=== PATIENT | male | born 1970 | race Caucasian/White ===

== ENCOUNTER 2020-07-14 10:53 | Inpatient (IN) | payer OTHER ==
[~2020-07-14] VITALS: Ht 170.2 cm; Wt 94.3 kg
[2020-07-14] VITALS (27 sets, daily range): BP systolic 122–158; BP diastolic 79–103
[~2020-07-14 10:53] MED LIST: LEXAPRO 10 MG T10 M2 PO; PRILOSEC 10MG C10 MG PO; PROZAC10 MG PO; TRAMADOL 50 MG50 MG PO
[2020-07-14 11:40] LABS: HEMATOCRIT 46.2 % (42.0-52.0); HEMOGLOBIN 15.5 gm/dL (14.0-18.0); MCH 30.1 pg (26.0-34.0); MCHC 33.5 g/dL (28.0-37.0); MCV 89.9 fL (80.0-100.0); MPV 8.7 fl. (7.2-11.1); NUCLEATED RBCS 0 /100WBC; PLATELET COUNT* 367 thou/uL (150-400); RBC 5.14 mil/uL (4.50-6.00); RDW-CV 13.3 % (10.5-14.5); WBC 17.7 thou/uL (4.0-11.0)
[2020-07-14 11:47] LABS: CREATININE 1.1 mg/dL (0.6-1.3); POTASSIUM 4.2 mmol/L (3.5-5.1)
[2020-07-14 12:01] LABS: ALBUMIN 3.7 g/dL (3.4-5.0); CK-MB MASS 65.5 ng/mL (<0.5-3.6); MAGNESIUM 1.8 mg/dL (1.8-2.4); TOTAL BILIRUBIN 0.3 mg/dL (<0.1-1.0); TOTAL PROTEIN 7.8 g/dL (6.4-8.2)
[2020-07-14 12:57] LABS: ABSOLUTE LYMPHOCYTES 0.9 thou/uL (0.8-5.3); ABSOLUTE NEUTROPHILS 16.8 thou/uL (1.6-8.1); PLATELET ESTIMATE ADEQUATE
[2020-07-14 13:57] LABS: INR 1.1; PROTIME 11.5 Seconds (9.20-11.50)
[2020-07-14 14:10] LABS: APTT > 139.0 Seconds (25.0-31.3)
--- NOTE | 2020-07-14 17:59 | CARD ---
[address] [address] CARDIAC CATH REPORT Name: LAKISHA CHRISTIANSEN Room: [address] ADM IN .Samir.#: [id number] Admission: 07/14/20 Attend Phys: Juhi Mistry Discharge: Date of : 68 Report #: [id number] THIS REPORT FOR: cc: Myke Angela MD, Anthony MD ~ Beto Henry MD [facility] APPROVED REPORT Study performed: 07/14/2020 11:06:32 Patient Details Patient Status: ED Room #: The patient is a 49 year-old male Event Personnel Beto Henry Hr Operations Advisor, Kimberly Cordova RN Electronic Development Technician, Filippo Lopez [employer] Monitor, Lona Martínez RTR Scrub, Kamran Gutierrez RTR Monitor Procedures Performed Left Heart Cath w/or w/o Coronaries [id number] [facility] Revasc AMI Total/Sub Single LAD C9606 AMIREVSING Hemostasis with Hemoband Indication Abnormal ECG, STEMI (>6 hrs to = 12 hrs), Chest pain Risk Factors Hypercholesterolemia, Hypertension, Diabetes Tobacco History () Admission/Lab Medications/Medications given during procedure Glycoprotein IllbIlla Inhibitors, Heparin Unfract., Nitroglycerin IA 200 mcg, Verapamil IA 2.5 mg, Heparin IV 7000 units, Aggrastat IV 9.2 mcg per min, Nitroglycerin IC 200 mcg, Midazolam (Versed) IV 2 mg, Verapamil IV 1.5 mg, Heparin IV 2000 units, Effient PO 60 mg Procedure Narrative The patient was brought emergently to the Cardiac Catheterization Laboratory and was prepped and draped in a sterile manner. The right wrist was infiltrated with 2% Lidocaine subcutaneous anesthesia. A Slender Glidesheath sheath was inserted into [place] [address] CARDIAC CATH REPORT Name: LAKISHA CHRISTIANSEN Room: [address] IN ..#: [id number] Admission: 07/14/20 Attend Phys: Juhi Mistry Discharge: Date of : 68 Report #: [id number] Coronary angiography was performed using coronary diagnostic catheters. The right coronary system was accessed and visualized with a Diagnostic JR4 6Fr catheter. The left coronary system was accessed and visualized with a Diagnostic JL4 6Fr catheter. The left ventricle was accessed and visualized with a Diagnostic Pigtail 6Fr catheter. Left ventricular/Aortic Valve gradient assessed via catheter pullback. Left ventriculogram was performed in CASTILLO projection. Closure device was deployed with a 6 Fr vascband. The patient tolerated the procedure well and there were no complications associated with the procedure. There was no hematoma. Intraoperative Conscious Sedation Sedation start time: 1112 Case end Time: 1201 Versed 2 mg Fluoro Time: 8.6 minutes Dose: DAP 813012 cGycm2 1878.45 mGy Contrast Type and Amount: Visipaque 140 ml Coronary Angiography The patient's coronary anatomy is right dominant. Diagnostic Cath Left Main 0% stenosis LAD completely occluded proximally with thrombus. After reperfusion, a 40% stenosis was noted in the distal LAD Diagonal 1 large vessel with 70% proximal stenosis Circumflex 0% stenosis Right Coronary 40% mid stenosis Left Ventriculography The left ventricular ejection fraction is estimated to be 30-35%. Left ventricular wall motion abnormalities are present. There is no mitral insufficiency. Severe hypokinesis noted of the mid and distal anterior wall and apex Hemodynamics The aortic pressure is 141/81 mmHg with a mean of 109 mmHg. The left ventricular pressure is 136/15 mmHg with a mean of mmHg. The left ventricular end diastolic pressure is 25 mmHg. There was no gradient across the aortic valve upon pullback. Pullback from the left ventricle to the aorta revealed no gradient [place] [address] CARDIAC CATH REPORT Name: LAKISHA CHRISTIANSEN Room: [address] IN [facility]#: [id number] Admission: 07/14/20 Attend Phys: Juhi Mistry Discharge: Date of : 68 Report #: [id number] PCI Technique Lesion Anticoagulation was achieved with Heparin. bolus of iv aggrastat given Percutaneous coronary intervention was performed on the proximal left anterior descending artery segment. The lesion stenosis prior to intervention was 100% with ARIE 0 flow. A 6F XB LAD 3.5 Guide Catheter was used to engage the Left ostium. A IG: BMW 190cm Interventional Guidewire was used to cross the lesion. BALLOON DILATION A Balloon catheter Trek RX 2.5 X 8 was inserted and inflated up to 8.00atm for 6seconds. Repeat angiography revealed the following post-dilatation results: 40% stenosis. Additional Inflation: 12.00atm for 11seconds. Additional Inflation: 18.00atm for 11seconds. STENT DEPLOYMENT A drug-eluting stent Xience Lucie 3.5X15mm was inserted and inflated up to 10.00atm for 18seconds. Repeat angiography revealed the following post-stent deployment results: 0% stenosis. Additional Inflation: 10.00atm for 9seconds. Additional Inflation: 18.00atm for 14seconds. Final angiography reveals 0 % stenosis with ARIE 3 flow. Conclusion 1. acute occlusion of the proximal LAD 2. LVEF 30-35% 3. successful placement of a drug eluting stent in the proximal LAD Recommendations consider ICD Medications Administered Prasugrel <ELECTRONICALLY SIGNED> By: Beto Henry MD, FACC 07/14/201758 58 58Beto Henry MD, FACC /INF
[2020-07-14] MEDS ORDERED: TRAMADOL 50 MG50 MG PO (19:58)
[2020-07-14] MEDS ORDERED: METFORMIN HCL500 M3 PO (19:59)
[2020-07-14] MEDS ORDERED: OMEPRAZOLE 20 M20 M1 PO (20:00)
[2020-07-14] MEDS ORDERED: EZALLOR SPRINKL10 MG (20:01)
[2020-07-14] MEDS ORDERED: NORVASC 2.5 MG2.5 M1 (20:03)
[2020-07-15] VITALS (11 sets, daily range): BP systolic 107–133; BP diastolic 51–88
[2020-07-15 03:33] LABS: HEMATOCRIT 43.6 % (42.0-52.0); HEMOGLOBIN 14.4 gm/dL (14.0-18.0); MCH 29.6 pg (26.0-34.0); MCV 89.7 fL (80.0-100.0); MPV 8.2 fl. (7.2-11.1); RBC 4.86 mil/uL (4.50-6.00); RDW-CV 13.4 % (10.5-14.5); WBC 18.1 thou/uL (4.0-11.0)
[2020-07-15 03:48] LABS: ANION GAP 8 mmol/L (7-16); BUN 14 mg/dL (7-18); CHLORIDE 102 mmol/L (98-107); CHOLESTEROL 180 mg/dL (<200); CO2 27 mmol/L (21-32); CREATININE 0.9 mg/dL (0.6-1.3); GLUCOSE 205 mg/dL (70-99); HDL CHOLESTEROL 23 mg/dL (>40); LDL CHOLESTEROL 128 mg/dL (<100); POTASSIUM 3.8 mmol/L (3.5-5.1); SODIUM 137 mmol/L (136-145); TC:HDL 7.8 Ratio (Not establshd); TRIGLYCERIDE 148 mg/dL (<150); VLDL 30 mg/dL (<40)
[2020-07-15 03:53] LABS: SERUM ASSESSMENT CLEAR
[2020-07-15 04:14] LABS: TROPONIN-I LEVEL 152.71 ng/mL (<0.06)
[2020-07-15] MEDS ORDERED: EFFIENT10 MG PO (07:37)
[2020-07-15] MEDS ORDERED: NITROGLYCERIN0.4 MG SUBLING (07:37)
[2020-07-15] MEDS ORDERED: ASPIR 8181 MG PO (07:37)
[2020-07-15] MEDS ORDERED: EZALLOR SPRINKL20 MG PO (07:37)
[2020-07-15] MEDS ORDERED: COZAAR 25 MG TA25 M2 PO (07:37)
[2020-07-15] MEDS ORDERED: CARVEDILOL3.125 MG PO (07:39)
--- NOTE | 2020-07-15 10:24 | EKG ---
[place] [address] ELECTROCARDIOGRAM REPORT Name: LAKISHA CHRISTIANSEN Room: [address] ADM IN M.R.#: [id number] Admission: 07/14/20 Attend Phys: Chanell Gonzales Discharge: Date of : 68 Date of Service: 07/15/20 0633 Report #: [id number] THIS REPORT FOR: //name// [facility] Test Date: 2020-07-15 Test Time: 06:33:05 Pat Name: TANOSHAGUFTA ЕЛЕНА Department: Room: [address] Gender: M Family Nurse Practitioner: JERRY : 1970 Requested By: Beto Henry Order Number: [id number] Ismael MD: Beto Henry Measurements Intervals [place] Rate: 64 P: 64 [place]: 155 QRS: 36 QRSD: 82 T: 71 QT: 453 QTc: 468 Interpretive Statements Sinus rhythm Probable anteroseptal infarct, recent Lateral leads are also involved Baseline wander in lead(s) V1 Compared to ECG 09/12/2008 16:16:36 Myocardial infarct finding now present Sinus arrhythmia no longer present Electronically Signed On 07-15-2020 10:23:59 INDUSTRIAL LABORER by Beto Henry [email or web address] <ELECTRONICALLY SIGNED> By: Beto Henry MD, [facility] 07/15/20 1023 Beto Henry MD, [facility] /EPI
--- NOTE | 2020-07-15 13:09 | CON ---
[facility] [address] [place] [address] CONSULTATION Name: LAKISHA CHRISTIANSEN Room: [address] IN Juhi.Samir.#: [id number] Admission: 07/14/20 Attend Phys: Juhi Mistry Discharge: Date of : 68 Report #: [id number] THIS REPORT FOR: cc: Myke Angela MD, Anthony MD Beto Henry MD [facility] DATE OF SERVICE: 07/14/2020 CARDIOLOGY CONSULTATION HISTORY OF PRESENT ILLNESS: The patient is a 49-year-old single white male who I was asked to see in the Emergency Room today after he complained of chest pain. The patient has no previous history of heart disease. He apparently had a stress test years ago that was unremarkable. He stays active at work. He denied any recent chest pain. He does smoke a half pack of cigarettes a day. Recently, he has been coughing and felt fatigued. He tested for COVID yesterday and apparently was negative. Last night, he felt a discomfort in his chest, went into his arm, felt somewhat nauseated. He went to sleep, but when he awakened, he continued to have the chest discomfort, is worse when he took a deep breath. Because of persistence of the pain, he finally called the ambulance and was brought here to [facility]. Paramedics took an ECG that showed evidence of an acute anterior ST-segment elevation myocardial infarction. He was given aspirin and transferred to [facility] for further evaluation and treatment. PAST MEDICAL HISTORY: He has had previous hemicolectomy for diverticular disease. He has a history of hypertension, diabetes, hyperlipidemia. MEDICATIONS: Include metformin, amlodipine, Crestor. ALLERGIES: HE HAS AN ALLERGY TO PENICILLIN. FAMILY HISTORY: Negative for heart disease. SOCIAL HISTORY: He is , lives by herself in [place], [place]. He works as a mechanic/welder. He smokes half pack of cigarettes a day. No alcohol abuse, no illicit drug use. REVIEW OF SYSTEMS: No history of stroke. He does have a chronic cough. No history of liver disease. He has had a kidney stone. No cancer. No psychiatric illness. No chronic skin condition. PHYSICAL EXAMINATION: GENERAL: Revealed a middle-aged male [place] [address] CONSULTATION Name: LAKISHA CHRISTIANSEN Room: [address] IN [facility]#: [id number] Admission: 07/14/20 Attend Phys: Juhi Mistry Discharge: Date of : 68 Report #: [id number] secondary to chest pain. VITAL SIGNS: Blood pressure is 120/70, pulse is 90. HEENT: He was anicteric. Conjunctivae are pink. Mucous membranes moist. NECK: Veins do not appear distended. No carotid bruits. CHEST: Clear to auscultation. CARDIOVASCULAR: Regular rate and rhythm. ABDOMEN: Soft. EXTREMITIES: Had no edema. SKIN: Warm and dry. DIAGNOSTIC DATA: ECG showed sinus rhythm, ST-segment elevation of 4 mm in the anterior precordial leads. LABORATORY WORK: Sodium 137, creatinine 1.1, glucose 384. His troponin on admission was 2.82. BNP 208. White blood cell count 17.7, hemoglobin 15.5. COVID antigen stat test was negative. IMPRESSION AND RECOMMENDATIONS: 1. Acute anterior ST-segment elevation myocardial infarction. Recommend urgent cardiac catheterization. 2. Tobacco abuse. 3. Chronic bronchitis. 4. Diabetes. 5. Hypertension. The patient is on a calcium richi. 6. Hyperlipidemia. The patient is on a statin drug. 7. History of kidney stones. Critical care time was from 11:30 a.m. to 12:30 p.m. <ELECTRONICALLY SIGNED> By: Beto Henry MD, FACC 07/15/20 1309 1216 1232Dskyla Henry MD, FACC /nt
[2020-07-16 04:00] VITALS: BP 112/75
[2020-07-16 08:10] VITALS: BP 116/68
[2020-07-16 10:18] VITALS: BP 116/68
== END 2020-07-16 12:10 | disposition home or self-care (01) | DRG 246 ==
LOC: M.ERS 10:53 → M.TBA-CV 11:17 → M.ERS 11:17 → M.CL 11:17 → M.ICU 12:18 → M.2W 07-15 21:34
PROVIDERS: Family Medicine; Internal Medicine Cardiovascular Disease; ADMIT Internal Medicine; ATTEND Internal Medicine
PROC: B211YZZ Fluoroscopy of Multiple Coronary Arteries using Other Contrast (ICD-10-PCS; principal; 2020-07-14)
PROC: 027034Z Dilation of Coronary Artery, One Artery with Drug-eluting Intraluminal Device, Percutaneous Approach (ICD-10-PCS; principal; 2020-07-14)
PROC: 4A023N7 Measurement of Cardiac Sampling and Pressure, Left Heart, Percutaneous Approach (ICD-10-PCS; principal; 2020-07-14)
PROC: B215YZZ Fluoroscopy of Left Heart using Other Contrast (ICD-10-PCS; principal; 2020-07-14)
DX: I21.09 ST elevation (STEMI) myocardial infarction involving other coronary artery of anterior wall (principal); I50.21 Acute systolic (congestive) heart failure; R65.10 Systemic inflammatory response syndrome (SIRS) of non-infectious origin without acute organ dysfunction; I42.9 Cardiomyopathy, unspecified; M19.90 Unspecified osteoarthritis, unspecified site; E78.5 Hyperlipidemia, unspecified; E11.9 Type 2 diabetes mellitus without complications; J42 Unspecified chronic bronchitis; F17.210 Nicotine dependence, cigarettes, uncomplicated; E66.9 Obesity, unspecified; I11.0 Hypertensive heart disease with heart failure; Z20.822 Contact with and (suspected) exposure to COVID-19; Z28.21 Immunization not carried out because of patient refusal; Z88.6 Allergy status to analgesic agent; Z88.0 Allergy status to penicillin; Z68.32 Body mass index [BMI] 32.0-32.9, adult; Z79.82 Long term (current) use of aspirin; Z79.899 Other long term (current) drug therapy

== ENCOUNTER → 2021-02-09 | Outpatient (CLI) | payer OTHER ==
[~2021-02-09] MED LIST changes: +ASPIR 8181 MG PO; +CARVEDILOL3.125 MG PO; +COZAAR 25 MG TA25 M2 PO; +EFFIENT10 MG PO; +EZALLOR SPRINKL10 MG; +EZALLOR SPRINKL20 MG PO; +METFORMIN HCL500 M3 PO; +NITROGLYCERIN0.4 MG SUBLING; +NORVASC 2.5 MG2.5 M1; +OMEPRAZOLE 20 M20 M1 PO
--- NOTE | 2021-02-09 17:32 | CARDNUC ---
[place] [address] CARDIAC NUCLEAR IMAGING REPORT Name: LAKISHA CHRISTIANSEN Room: [facility]#: [id number] Admission: 02/09/21 Attend Phys: Beto Henry MD Discharge: Date of : 68 Date of Service: 02/09/21 1732 Report #: [id number] THIS REPORT FOR: cc: Myke Angela MD, Anthony MD [place],Nghia Gonzalez MD [facility] ~ APPROVED REPORT Imaging Protocol: Rest Tc-99m/Stress Tc-99m 1 day Study performed: 02/09/2021 09:24:05 Indication: Chest pain Patient Location: Out-Patient Stress Nurse: LOIS Cam Tech:CHE Cote Ht: 5 ft 9 in Wt: 208 lbs BSA: 2.10 m2 BMI: 30.71 Medical History Medical History: CAD s/p MA, CAD s/p stent, Diabetes, HTN, Hyperlipidemia Medications: ASA-81, CARVEDILOL, LOSARTAN, NTG, PRASUGREL, ROSUVASTATIN Allergies: PENICILLIN Cardiac Risk Factors: Age, Current Smoker, DM, HTN, Hyperlipidemia Previous Cardiac Procedures: Myocardial infarction, PCI Exercise History: Sedentary Meds Held (24 hrs): CARVEDILOL Resting Data Rest SPECT myocardial perfusion imaging was performed in supine position 30 minutes following the intravenous injection of 9.8 mCi of Tc-99m Sestamibi. Time of rest injection: 804 Date: 02/09/2021 The images were gated to evaluate regional wall motion and calculate left ventricular ejection fraction. Administration Route: IV Pharmacologic Stress Pharmacologic stress test was performed by injecting Regadenoson 0.4 mg IV push over 10-15 seconds immediately followed by the intravenous injection of 35.4 mCi of Tc-99[place] [address] CARDIAC NUCLEAR IMAGING REPORT Name: LAKISHA CHRISTIANSEN Room: [facility]#: [id number] Admission: 02/09/21 Attend Phys: Beto Henry MD Discharge: Date of : 68 Date of Service: 02/09/21 1732 Report #: [id number] Time of stress injection: 934 Date: 02/09/2021 Administration Route: IV Gated Stress SPECT was performed 40 minutes after stress injection. The images were gated to evaluate regional wall motion and calculate left ventricular ejection fraction. Prone imaging was performed. Stress Test Details Stress Test: Pharmacologic stress testing performed using 0.4 mg of regadenoson per 5 mL given IV over 10 seconds. HR Max Heart Rate (APMHR): 169 bpm Resting HR: 51 bpm Target HR (85% APMHR): 143 bpm Max HR Achieved: 83 bpm % of APMHR: 49 Recovery HR: 74 bpm BP Resting BP: 121/81 mmHg Max BP: 128/71 mmHg Recovery BP: 134/87 mmHg ECG Resting ECG: Sinus Rhythm Stress ECG: Sinus Rhythm ST Change: None Arrhythmia: None Recovery ECG: Sinus Rhythm Recovery ST Change: None Recovery Arrhythmia: None Clinical Reason for Termination: Completed protocol The patient tolerated Lexiscan infusion without significant cardiac symptoms. Nurse Comments Patient has bad knees. Stress ECG Conclusion The baseline twelve-lead EKG shows sinus rhythm without significant ST segment abnormality. EKGs obtained during and post Lexiscan showed sinus rhythm with no significant ST segment changes when compared to baseline. There were no [place] [address] CARDIAC NUCLEAR IMAGING REPORT Name: LAKISHA CHRISTIANSEN Room: [facility]#: [id number] Admission: 02/09/21 Attend Phys: Beto Henry MD Discharge: Date of : 68 Date of Service: 02/09/21 1732 Report #: [id number] Study Quality Study: Good Artifact: No artifact Study Data At rest, the left ventricular ejection fraction was 25%.. Post stress, the left ventricular ejection was 35%.. TID = 0.99. Perfusion There is a moderate sized severe intensity fixed defect involving the distal anterior and anteroapical wall consistent with prior infarct. No reversible defects were identified. Wall Motion There is a region of akinesis involving the distal anterior wall anteroseptal wall and apex. Global LV systolic function is moderately decreased. Nuclear Conclusion ECG Findings: negative for ischemia Clinical Findings: negative for ischemia Nuclear Findings: negative for ischemia Exercise Capacity: not assessed Left Ventricular Function: abnormal Risk Study: high Perfusion images are consistent with prior anteroapical infarct. No reversible defects are identified. Global LV systolic function is moderately decreased with wall motion abnormalities as outlined above. This is a high risk study due to LV systolic dysfunction. <Conclusion> The baseline twelve-lead EKG shows sinus rhythm without significant ST segment abnormality. EKGs obtained during and post Lexiscan showed sinus rhythm with no significant ST segment changes when compared to baseline. There were no stress-induced arrhythmias. <ELECTRONICALLY SIGNED> By: Nghia Humphreys MD, FACC 02/09/21 1732 173 173 Nghia Humphreys MD, FACC /INF
== END ==
LOC: M.NUC 09-04 12:12
PROVIDERS: ATTEND Internal Medicine Cardiovascular Disease
DX: I21.A9 Other myocardial infarction type (principal); E11.59 Type 2 diabetes mellitus with other circulatory complications; I10 Essential (primary) hypertension; E78.2 Mixed hyperlipidemia; Z72.0 Tobacco use

== ENCOUNTER 2021-04-13 01:08 | Observation (INO) | payer OTHER ==
[~2021-04-13] VITALS: Ht 175.3 cm; Wt 102.9 kg
[2021-04-13] VITALS (21 sets, daily range): BP systolic 94–176; BP diastolic 44–92
[2021-04-13 01:33] LABS: ABSOLUTE BASOPHILS 0.1 thou/uL (0.0-0.2); ABSOLUTE EOSINOPHILS 0.3 thou/uL (0.0-0.7); ABSOLUTE LYMPHOCYTES 3.2 thou/uL (0.8-5.3); ABSOLUTE MONOCYTES 1.1 thou/uL (0.0-1.2); ABSOLUTE NEUTROPHILS 6.8 thou/uL (1.6-8.1); BASOPHILS 1.1 %; EOSINOPHILS 2.9 %; HEMATOCRIT 42.6 % (42.0-52.0); HEMOGLOBIN 14.5 gm/dL (14.0-18.0); LYMPHOCYTES 27.5 %; MONOCYTES 9.4 %; MPV 8.1 fl. (7.2-11.1); NUCLEATED RBCS 0 /100WBC; PLATELET COUNT* 333 thou/uL (150-400); POLYS 59.1 %; RBC 4.68 mil/uL (4.50-6.00); RDW-CV 14.5 % (10.5-14.5); WBC 11.6 thou/uL (4.0-11.0)
[2021-04-13 01:47] LABS: APTT 30.5 Seconds (25.0-31.3); INR 1.1; PROTIME 11.4 Seconds (9.20-11.50)
[2021-04-13 01:51] LABS: CALCIUM 8.7 mg/dL (8.5-10.1); POTASSIUM 3.4 mmol/L (3.5-5.1)
[2021-04-13 01:55] LABS: ALBUMIN 3.6 g/dL (3.4-5.0); TOTAL BILIRUBIN 0.3 mg/dL (<0.1-1.0); TOTAL PROTEIN 7.7 g/dL (6.4-8.2)
--- NOTE | 2021-04-13 06:30 | NUR ---
RECEIVED REPORT FROM ER, PT TO ROOM PER CART AT 0615. PT NON COMPLIANT, STATES HE IS NOT GOING TO WEAR THE OXYGEN BECAUSE HIS NOSE IS ALREADY DRIED OUT. COMPLAINING ABOUT HIS GOWN, BED IS UNCOMFORTABLE. TELEMETRY APPLIED SHOWING SR. SEE ADMISSION ASSESSMENT AND HX.
--- NOTE | 2021-04-13 09:48 | NUR ---
CM ASSESSMENT: PT A&O, INDEPENDENT WITH ADL'S, ACTIVE AND WORKS OUTSIDE THE HOME. PT CURRENTLY REQUIRES 2L O2, BUT REFUSING PER RN. PT MAY REQUIRE R.T. TESTING FOR HOME OXYGEN PRIOR TO D/C. NO OTHER CM D/C PLANNING NEEDS ANTICIPATED AT THIS TIME. CM WILL REMAIN AVAILABLE TO ASSIST AND FOLLOW NEEDED.
--- NOTE | 2021-04-13 11:15 | EKG ---
[place] [address] ELECTROCARDIOGRAM REPORT Name: LAKISHA CHRISTIANSEN Room: [address] M.R.#: [id number] Admission: 04/13/21 Attend Phys: Marian Cardenas MD Discharge: Date of : 68 Date of Service: 04/13/21 0111 Report #: [id number] THIS REPORT FOR: //name// [facility] ED Test Date: 2021-04-13 Test Time: 01:11:57 Pat Name: LAKISHA ЕЛЕНА Department: Room: [facility] Gender: M Inventory Controller: CHAYITO : 1970 Requested By: Swati Nicole Order Number: [id number] MD: Beto Henry Measurements Intervals [place] Rate: 62 P: 35 [place]: 157 QRS: 24 QRSD: 103 T: 88 QT: 449 QTc: 456 Interpretive Statements Sinus rhythm Anterior infarct, age indeterminate Compared to ECG 07/15/2020 06:33:05 No significant changes Electronically Signed On 04-13-2021 11:14:51 CDT by Beto Henry [email or web address] <ELECTRONICALLY SIGNED> By: Beto Henry MD, FACC 04/13/21 1114 0 0 Beto Henry MD, [facility] /EPI
--- NOTE | 2021-04-13 11:19 | EKG ---
[place] [address] ELECTROCARDIOGRAM REPORT Name: LAKISHA CHRISTIANSEN Room: [address] M.R.#: [id number] Admission: 04/13/21 Attend Phys: Marian Cardenas MD Discharge: Date of : 68 Date of Service: 04/13/21 1051 Report #: [id number] THIS REPORT FOR: //name// [facility] Test Date: 2021-04-13 Test Time: 10:51:33 Pat Name: LAKISHA MARTINJACEY Department: Room: [facility] Gender: M Adult Remedial Education Instructor: : 1970 Requested By: Swati Nicole Order Number: [id number] MD: Beto Henry Measurements Intervals [place] Rate: 50 P: 43 [place]: 190 QRS: 3 QRSD: 123 T: 28 QT: 507 QTc: 463 Interpretive Statements Sinus bradycardia old anterior infarction Compared to ECG 04/13/2021 01:11:57 rate has slowed Electronically Signed On 04-13-2021 11:19:35 CDT by Beto Henry [email or web address] <ELECTRONICALLY SIGNED> By: Beto Henry MD, FACC 04/13/21 1119 1051 1051 Beto Henry MD, [facility] /EPI
--- NOTE | 2021-04-13 13:50 | CARD ---
[address] [address] CARDIAC CATH REPORT Name: LAKISHA CHRISTIANSEN Room: [address] Camila Andrews#: [id number] Admission: 04/13/21 Attend Phys: Marian Cardenas MD Discharge: Date of : 68 Report #: [id number] THIS REPORT FOR: cc: Myke Angela MD, Anthony MD Blick,Beto Welch MD [facility] ~ ADDENDUM APPROVED REPORT Study performed: 04/13/2021 08:59:48 Patient Details Patient Status: In-Patient Room #: 218 The patient is a 50 year-old male Event Personnel Dr Henry, Kamran Gutierrez RTR, Mary Stevenson RN, Ashleigh Delgado RTR Procedures Performed Left heart cath with LV gram, PTCA of proximal LAD instent restenosis of previously placed stent. Indication Abnormal ECG, Chest pain Risk Factors Hypercholesterolemia, Coronary Artery Disease, Tobacco History () Previous Procedures/Diagnoses Previous PCI, Previous IA Admission/Lab Medications/Medications given during procedure Heparin Unfract. Procedure Narrative The patient was brought electively to the Cardiac Catheterization Laboratory and was prepped and draped in a sterile manner. The right wrist was infiltrated with 2% Lidocaine subcutaneous anesthesia. IV conscious sedation was used throughout procedure with appropriate monitoring and was performed in the presence of a registered nurse who was an independent trained observer other than the physician performing the procedure. A 6Fr Glidesheath Slender sheath was inserted into the right radial artery. [place] [address] CARDIAC CATH REPORT Name: LAKISHA CHRISTIANSEN Room: [address] Camila Andrews#: [id number] Admission: 04/13/21 Attend Phys: Marian Cardenas MD Discharge: Date of : 68 Report #: [id number] performed using coronary diagnostic catheters. The right coronary system was accessed and visualized with a Diagnostic 6Fr JR4 catheter. The left coronary system was accessed and visualized with a Diagnostic 6Fr JL4 catheter. The left ventricle was accessed and visualized with a Diagnostic 6Fr Straight Pigtail catheter. Left ventricular/Aortic Valve gradient assessed via catheter pullback. Left ventriculogram was performed in CASTILLO projection. Closure device was deployed with a 6 Fr vascband. The patient tolerated the procedure well and there were no complications associated with the procedure. There was no hematoma. TR band was utilized to achieve hemostasis, 8 ml of air was inflated into the band. Intraoperative Conscious Sedation Sedation start time: 930 Case end Time: 1024 Fentanyl 100.0 mcg Versed 4.0 mg Fluoro Time: 7.9 minutes Dose: DAP 426335 cGycm2 1940 mGy Contrast Type and Amount: Omnipaque 150ml Coronary Angiography The patient's coronary anatomy is right dominant. Diagnostic Cath Left Main 30% distal stenosis LAD Stent in proximal LAD had a 70% restenosis. Mid LAD had a 60% stenosis. Diagonal 1 large vessel with 70% mid stenosis Circumflex 0% stenosis Right Coronary 40% proximal stenosis Ramus large vessel with 0% stenosis Left Ventriculography The left ventricular ejection fraction is estimated to be 35-40%. Left ventricular wall motion abnormalities are present. There is no mitral insufficiency. Severe hypokinesis noted of the mid and distal anteroapical wall. Hemodynamics The aortic pressure is 99/58 mmHg with a mean of 75 mmHg. The left ventricular pressure is 99/10 mmHg with a mean of 21 mmHg. The left ventricular end diastolic pressure is 18 mmHg. There was no gradient across the aortic valve upon pullback. Pullback from the left ventricle to the aorta revealed no gradient [place] [address] CARDIAC CATH REPORT Name: LAKISHA CHRISTIANSEN Room: [address]#: [id number] Admission: 04/13/21 Attend Phys: Marian Cardenas MD Discharge: Date of : 68 Report #: [id number] valve. PCI Technique Lesion Anticoagulation was achieved with Heparin. Patient was preloaded with Effient. Percutaneous coronary intervention was performed on the proximal left anterior descending artery segment. The lesion stenosis prior to intervention was 70% with ARIE 3 flow. A 6Fr XB LAD 3.5 Guide Catheter was used to engage the Left ostium. A 90cm BMW Interventional Guidewire was used to cross the lesion. BALLOON DILATION A Balloon catheter Euphora 3.5 x 12 was inserted and inflated up to 20atm for 21seconds. Repeat angiography revealed the following post-dilatation results: 30% stenosis. Additional Inflation: 22atm for 13seconds. Because of residual stenosis, the lesion was dilated with a larger 4.0 x 12 mm balloon to 16 dar. The previously 3.5 x 15 drug eluting stent had beed placed in June 2020, therefore it was decided to treat with PTCA alone using a larger diameter balloon, rather than placing another stent. Final angiography reveals 0 % stenosis with ARIE 3 flow. BALLOON DILATION A Balloon catheter was inserted and inflated up to 15atm for 14seconds. Additional Inflation: 17atm for 12seconds. Additional Inflation: 16atm for 15seconds. Conclusion 1. 70% restenosis of a stent in the proximal LAD. 2. successful PTCA of the stent 3. LVEF 35-40% Recommendations Smoking Cessation <ELECTRONICALLY SIGNED> By: Beto Henry MD, [facility] 04/13/21 1350 49 1350Dajulia Henry MD, FACC /INF
--- NOTE | 2021-04-13 15:00 | CON ---
[address] [address] CONSULTATION Name: LAKISHA CHRISTIANSEN Room: [address] Camila Andrews#: [id number] Admission: 04/13/21 Attend Phys: Marian Cardenas MD Discharge: Date of : 68 Report #: [id number] THIS REPORT FOR: cc: Myke Angela MD,Beto Galarza MD, MD FAC ~ cc: Myke Angela MD DATE OF CONSULTATION: 04/13/2021 CARDIOLOGY CONSULTATION PRIMARY CARE PHYSICIAN: Myke Angela MD HISTORY OF PRESENT ILLNESS: The patient is a 50-year-old single white male, who came to the Emergency Room last night complaining of chest pain. The patient has a long history of smoking, hypertension, hyperlipidemia and diabetes. He presented in June of this year with acute anterior STEMI. I performed urgent cardiac catheterization from the right radial artery. The LAD was completely occluded proximally with thrombus. The distal LAD had a 40% stenosis. The diagonal branch had a 70% proximal stenosis. The right coronary had a 40% mid stenosis. Ejection fraction was 35%. After placing the stent, he was placed on Effient. Echocardiogram in August showed an ejection fraction of 30-35%. He actually underwent a nuclear stress test in January that showed a fixed defect involving the distal anterior and apical wall, but no reversible ischemia. He underwent screening in February that showed no carotid stenosis. Since the patient's heart attack, he does have occasional chest pain that does not last very long. He does get short of breath when he overexerts himself. He complains of fatigue. He has had no bleeding. Last night, the patient was shooting pool when he suddenly felt a discomfort in his chest. It was similar to his heart attack. There was no radiation of the pain. He did feel nauseated. Denied shortness of breath or diaphoresis. He drove himself home. However, the pain returned. He finally drove himself to the Emergency Room, he was given morphine and the pain resolved. He tried taking some nitroglycerin at home, but it did not seem to help. He denied the pain being related to taking a deep breath or coughing. He denied recent fever. The pain was worse with deep breath. He denied any lower extremity edema or leg pain. Denied any palpitations or syncope. He denied any medical noncompliance. PAST MEDICAL HISTORY: He has had previous hemicolectomy for diverticular disease. He has a history of hypertension, diabetes, hyperlipidemia. CURRENT MEDICATIONS: Include aspirin, carvedilol, metformin, omeprazole, Effient, Crestor. He recently [place] [address] CONSULTATION Name: LAKISHA CHRISTIANSEN Room: [address] Camila Andrews#: [id number] Admission: 04/13/21 Attend Phys: Marian Cardenas MD Discharge: Date of : 68 Report #: [id number] ALLERGIES: HE HAS PREVIOUS ALLERGY TO PENICILLIN. He stopped taking Aldactone recently because of constipation and the constipation resolved. FAMILY HISTORY: Negative for heart disease. SOCIAL HISTORY: He is , lives in [place], [place], by himself. He works repairing garage doors. He notes that his had psychiatric illness and committed suicide. He also has a son, who committed suicide. REVIEW OF SYSTEMS: He has no history of stroke, asthma, liver disease, kidney disease or cancer. He had a kidney stone in the past. No chronic skin condition. No psychiatric illness. PHYSICAL EXAMINATION: GENERAL: Revealed a middle-aged male, who appeared in no distress. VITAL SIGNS: He had a blood pressure of 110/60, pulse 60. He was afebrile. HEENT: He was anicteric. Conjunctivae were pink. Mucous membranes were moist. NECK: Veins not distended. No carotid bruits. Neck supple. CHEST: Clear to auscultation. HEART: Regular rate and rhythm without murmurs. ABDOMEN: Soft. EXTREMITIES: Had no edema. Posterior tibial pulses 2+ bilaterally. SKIN: Cool and dry. NEUROLOGIC: Nonfocal. His ECG on admission showed a sinus rhythm, evidence of previous anterior infarction. His workup in the emergency room last night: He had a portable chest x-ray that showed normal heart size, clear lung joens. LABORATORY DATA: Potassium is 3.4, creatinine 1.0, glucose is 169. His high-sensitivity troponin is only 13. His LDL in June was 128. His hemoglobin was 14.5. His COVID antigen stat test was negative. IMPRESSION AND RECOMMENDATIONS: 1. Unstable angina. Recommend cardiac catheterization. 2. Cardiomyopathy. If ejection fraction noted to be less than 35%, I would consider defibrillator. The patient appears stable on a beta richi, Entresto. The patient could not tolerate spironolactone because of constipation. 3. Hypertension. The patient is on a beta richi and ARB. 4. Diabetes. [address] [address] CONSULTATION Name: LAKISHA CHRISTIANSEN Brodie Room: [address] Camila ReynagaSanyaSamirSanya#: [id number] Admission: 04/13/21 Attend Phys: Marian Cardenas MD Discharge: Date of : 68 Report #: [id number] 5. Hyperlipidemia. The patient is on a statin drug. 6. Tobacco abuse. I recommended that he attempt to stop smoking. <ELECTRONICALLY SIGNED> By: Beto Henry MD, FACC 04/13/21 1500 [id number] Henry MD, FACC /nt
[2021-04-14 04:00] VITALS: BP 122/78
--- NOTE | 2021-04-14 04:32 | NUR ---
PT IS ABLE TO COMMUNICATE HIS NEEDS TO STAFF EFFECTIVELY. HE HAS DENIED THE NEED FOR PAIN MEDICAITON UP TO THIS TIME. RT ARM CATH SITE BANDAGE IS C/D/I UP TO THIS TIME. POSSIBLE DISCHARGE TODAY.
[2021-04-14 08:00] VITALS: BP 149/84
[2021-04-14 08:03] LABS: HEMATOCRIT 40.1 % (42.0-52.0); HEMOGLOBIN 13.4 gm/dL (14.0-18.0); MCH 30.5 pg (26.0-34.0); MCHC 33.5 g/dL (28.0-37.0); MCV 90.9 fL (80.0-100.0); MPV 8.8 fl. (7.2-11.1); RBC 4.41 mil/uL (4.50-6.00); RDW-CV 13.7 % (10.5-14.5)
[2021-04-14 08:27] LABS: ANION GAP 10 mmol/L (7-16); BUN 11 mg/dL (7-18); CALCIUM 8.7 mg/dL (8.5-10.1); CHLORIDE 106 mmol/L (98-107); CO2 25 mmol/L (21-32); CREATININE 0.8 mg/dL (0.6-1.3); GLUCOSE 118 mg/dL (70-99); POTASSIUM 3.4 mmol/L (3.5-5.1); SODIUM 141 mmol/L (136-145)
[2021-04-14 08:38] LABS: CHOLESTEROL 114 mg/dL (<200); HDL CHOLESTEROL 27 mg/dL (>40); LDL CHOLESTEROL 62 mg/dL (<100); SERUM ASSESSMENT Clear; TC:HDL 4.2 Ratio (Not establshd); TRIGLYCERIDE 126 mg/dL (<150); VLDL 25 mg/dL (<40)
[2021-04-14 12:00] VITALS: BP 143/74
[2021-04-14 13:09] VITALS: BP 143/74
--- NOTE | 2021-04-14 13:31 | NUR ---
PT DC TO HOME BY WHEELCHAIR WITH NURSING STAFF AT 1330. IV OUT. PT STABLE UPON DC. PERSONAL BELONGINGS SENT WITH PT.
--- NOTE | 2021-04-16 10:24 | EKG ---
[place] [address] ELECTROCARDIOGRAM REPORT Name: LAKISHA CHRISTIANSEN [address]#: [id number] Admission: 04/13/21 Attend Phys: Marian Cardenas MD Discharge: 04/14/21 Date of : 68 Date of Service: 04/14/21619 Report #: [id number] THIS REPORT FOR: //name// [facility] Test Date: 2021-04-14 Test Time: 06:20:26 Pat Name: LAKISHA MARTINFAITHTRE Department: Room: [address] Gender: M Data Security Administrator: pp : 1970 Requested By: Beto Henry Order Number: [id number] Ismael MD: Beto Henry Measurements Intervals [place] Rate: 55 P: 43 AR: 167 QRS: 3 QRSD: 104 T: 83 QT: 485 QTc: 464 Interpretive Statements Sinus bradycardia Anterolateral infarct, age indeterminate Baseline wander in lead(s) V3 Compared to ECG 04/13/2021 10:51:33 Myocardial infarct finding still present Electronically Signed On 04-16-2021 10:23:48 CDT by Beto Henry [email or web address] <ELECTRONICALLY SIGNED> By: Beto Henry MD, FACC 04/16/21 1023 9 9 Beto Henry MD, FACC /EPI
== END 2021-04-14 13:32 | disposition home or self-care (01) ==
LOC: M.ERS 01:08 → M.TBA-ER 04:52 → M.2W 04:52
PROVIDERS: Internal Medicine Cardiovascular Disease; Personal Emergency Response Attendant; ADMIT Family Medicine; ATTEND Family Medicine
DX: I25.118 Atherosclerotic heart disease of native coronary artery with other forms of angina pectoris (principal); Z20.822 Contact with and (suspected) exposure to COVID-19; E78.00 Pure hypercholesterolemia, unspecified; I11.0 Hypertensive heart disease with heart failure; I50.21 Acute systolic (congestive) heart failure; E11.9 Type 2 diabetes mellitus without complications; I25.2 Old myocardial infarction; M19.90 Unspecified osteoarthritis, unspecified site; F17.200 Nicotine dependence, unspecified, uncomplicated; Z79.82 Long term (current) use of aspirin; Z79.899 Other long term (current) drug therapy